=== PATIENT | female | born 1955 | race Caucasian/White ===

== ENCOUNTER 2017-04-06 13:19 | Emergency (ER) | payer SELFPAY ==
--- NOTE | 2017-04-14 09:22 | ER ---
ADMIT: 04/06/2017 RM/LOC: ER [facility] MR#: [id number] [address] [place] [address] Emergency Room Report SEX: F AGE: 61 : 1955 DATE: 04/06/2017 HISTORY OF PRESENT ILLNESS: A 61-year-old female, presents to the emergency room complaining of right earache. She has some drainage. She has had some lesions in the right side of her face, which she says is due to skin cancer. She had an appendectomy, CVA, and cervical cancer. Takes an aspirin daily. She has on physical examination blood pressure 146/78. She is afebrile. She is alert. She has pain on movement of the auricle, right ear, swelling of the ear canal as well to the point that we are unable to look at the tympanic membrane. Oral mucosa is patent. Poor dentition. Nasal mucosa are clear, and as mentioned, scab in the jaw and cheek, right side of her face. CLINICAL IMPRESSION: Otitis externa, right with cellulitis. Cortisporin otic after applying a wick to the right ear. She was also given Ultram for pain control and encouraged to follow up with primary provider. Instructions given. Prescription for Cortisporin otic as well given to the patient. BLAZE Bianchi / Yung Cooney MD / sarojl JOB #: [id number] CC: Yung Cooney MD, Attending Physician Yaz Cook MD, Family Physician
== END 2017-04-06 14:29 | disposition home or self-care (01) ==
LOC: ER 13:19
DX: H60.11 Cellulitis of right external ear (principal); Z79.82 Long term (current) use of aspirin; Z90.49 Acquired absence of other specified parts of digestive tract; Z86.73 Personal history of transient ischemic attack (TIA), and cerebral infarction without residual deficits; Z85.41 Personal history of malignant neoplasm of cervix uteri; Z85.828 Personal history of other malignant neoplasm of skin